=== PATIENT | male | born 1945 | race Caucasian/White ===

== ENCOUNTER 2023-11-26 10:16 | Emergency (ER) | payer MEDICARE, BC, SELFPAY ==
[2023-11-26 10:26] VITALS: BP 135/80
[2023-11-26 10:49] VITALS: BMI 33.0
--- NOTE | 2023-11-26 10:53 | ED.GENMED ---
History of Present Illness
General
Chief Complaint: Back Pain
Source: patient
Exam Limitations: none
Time Seen by Provider: 11/26/23 10:33
Nursing documentation reviewed up to this point in time: agreed with
History of Present Illness
History of Present Illness:
The patient is a very pleasant 78-year-old man with a past medical history of gout. Patient reports that about 24 hours ago he developed redness, swelling and pain of his right ankle and the top of his right foot, as well as in his right big toe.
Patient reports that it felt like gout. Patient reports that he had colchicine from a previous flare of gout so he started it yesterday and it now feels better. Patient reports that additionally he is also suffering with sciatica causing pain to
radiate down his right calf. When he told people about his symptoms of ankle swelling and calf pain, they concerned him that he may have a possible blood clot. Patient reports he has no history of blood clots to the lung or leg. He denies chest
pain or shortness of breath. Patient reports that the pain in the ankle is now more bearable with the colchicine and he is able to walk. Patient reports he is due to have a steroid injection done in his back this Tuesday and was told that he should
not be taking NSAIDs.
Past History
Past History
ED Past Medical History: HTN, Hypercholesterolemia and Other (gout)
ED Past Surgical History: Orthopedic
Social History
Tobacco: Other
Alcohol: Other
Drug: None
Personal:
Living: with family
Employment: Other
Family History
Family History: Other
Review of Systems
Review of Systems
Allergies reviewed?: Yes
All Other Systems: ROS reviewed and negative except as documented in HPI and ROS
Constitutional: Reports no symptoms
EENT: Reports no symptoms
Respiratory: Reports no symptoms
Cardiac: Reports no symptoms
ABD/GI: Reports no symptoms
: Reports no symptoms
Musculoskeletal: Reports joint swelling, muscle stiffness, edema and back pain
Skin: Reports other
Neurological: Reports no symptoms
Endocrine: Reports no symptoms
Hematologic/Lymphatic: Reports no symptoms
Psychiatric: Reports no symptoms
Phy Exam
Physical Exam
Physical Exam:
Physical Exam
General: no apparent distress, not acutely ill, smiling, conversational
Neck: supple.
Heart: s1/s2 regular rate and rhythm,
Lungs: no acute respiratory distress.
Abdomen: Soft, nontender
Neuro: alert and oriented. no focal neurological deficits. Equal sensation in legs bilaterally. 5 out of 5 strength in bilateral lower extremities
Skin: Mild erythema and warmth of the medial right ankle, lateral right ankle, dorsal aspect of foot and along dorsal aspect of right big toe.
Psychiatric: well kept. interactive and cooperative
Extremities: 1+ pitting edema in right ankle. Patient able to fully plantarflex and dorsiflex right foot with minimal pain. Right calf is completely soft and does not appear swollen or enlarged. No calf tenderness.
Negative Homans' sign.
Course
Orders/Labs/Results
Orders:
Orders
11/26/23 10:51
US Legs, Right [US Periph Venous LOWER Ext RT] Urgent
Comment:
Reason For Exam: ankle swelling
11/26/23 10:52
Prednisone [Deltasone] 40 mg PO NOW STA
Vital Signs
Initial and Last Documented VS:
Initial Vital Signs
Temp Pulse Resp BP Pulse Ox
98.6 F 87 18 135/80 97
11/26/23 10:26 11/26/23 10:26 11/26/23 10:26 11/26/23 10:26 11/26/23 10:26
Last Documented Vital Signs
Temp Pulse Resp BP Pulse Ox
98.6 F 74 16 132/83 99
11/26/23 10:26 11/26/23 11:15 11/26/23 11:15 11/26/23 11:15 11/26/23 11:15
MDM/Problems Addressed
Differential Diagnosis Includes:
Acute gouty arthritis of right foot and ankle, septic right ankle, DVT right lower extremity
MDM/Problems Addressed:
Patient presents with chronic right leg and calf pain and acute swelling, erythema and pain of right ankle
Chronic conditions affecting care:
Gout
Acute Exacerbation and/or Progression of Chronic Illness:
Patient likely has acute exacerbation of chronic gout
Acute Exacerbation and/or Progression of Chronic Illness: Other (Gout)
*Radiology
Radiology exam reviewed: radiology read reviewed
*Pulse Oximetry
Patient hypoxic: no
*EKG
Interpreted by ED Provider?: NA
*Critical Care Note
Total Time (30-74mins, 75-104mins- exclusive of procedures): Not Applicable
Data Reviewed
Source: patient and spouse
Patient Management
Social determinants of health affecting care: Living situation and Strong social support
Escalation/DeEscalation of care consider admission/obs:
Patient remains well-appearing. It is doubtful to be a septic right ankle given that symptoms are improved with colchicine and he is able to range the ankle with minimal discomfort. Symptoms are very consistent with gout and less likely as a
cellulitis.
ED Attending Note
-
Portions of this chart may have been created with voice recognition software.� Occasional wrong word or��sound alike� substitutions may have occurred due to the inherent limitations of voice recognition software.
Discharge Plan
Departure
Patient Disposition: Home (Routine Discharge)
Date of Disposition: 11/26/23
Time of Disposition: 11:56
Patient with high blood pressure during this ER visit?: Yes
Condition: Good
Discharge Problem:
Gouty arthritis of right great toe, Acute gout of right ankle
Instructions: Low Purine Diet, Gout ED, BLOOD PRESSURE
Prescriptions:
New
prednisone 10 mg tablet
10 mg PO DIRECTED Qty: 12 0RF
Rx Instructions:
Take 3 tablets on day 2 and day 3
Take 2 tablets on day 4 and day 5
Take 1 tablet on day 6 and day 7
Referrals:
Nick Casisdy MD [Family Provider] -
Interventions
Interventions:
*Risk Screen - Suicide Last Done: 11/26/23 10:18
*General Assessment Last Done: 11/26/23 10:26
*Neglect/Abuse Screening Last Done: 11/26/23 10:26
ED- Fall Risk Assessment Last Done: 11/26/23 10:44
*ED COVID-19 Vaccine History Last Done: 11/26/23 10:47
ED-Musculoskeletal Assessment Last Done: 11/26/23 10:44
Discharge Date and Time
Print Language: CROATIAN
[2023-11-26 11:15] VITALS: BP 132/83
[2023-11-26] MEDS: DELTASONE 40 MG PO (11:15)
--- NOTE | 2023-11-26 11:53 | EDRN ---
Dr. Alejandro in to see pt at this time.
== END 2023-11-26 12:14 | disposition home or self-care (01) ==
LOC: EMR 10:16
PROVIDERS: EMERGENCY PHYSICIAN Emergency Medicine; FAMILY PHYSICIAN Internal Medicine
DX: M10.9 Gout, unspecified (principal); I10 Essential (primary) hypertension
CPT/HCPCS: 99284; 93971